=== PATIENT | male | born 1995 | race Caucasian/White ===

== ENCOUNTER 2021-10-11 16:10 | Emergency (ER) | payer BC, SELFPAY ==
[2021-10-11 16:19] VITALS: BP 147/95; PULSE 105; RESP 18; TEMP 37.3; O2SAT 99
--- NOTE | 2021-10-11 16:58 | ED.URI ---
HPI - URI/Sore Throat General Chief Complaint: Upper Respiratory Infection Stated Complaint: sore throat, clogged left ear History of Present Illness HPI Narrative: 26 year old male accompanied by father who presents to express care with complaints of one week duration of sore throat raspy voice, sinus congestion with drainage, and left ear feels clogged, Father states that his is [employer] and she brought home strep test which they performed at home which was negative. Patient reports that he has not had any fever, chills, or sweats, or body aches, patient reports that he has had COVID and Flu vaccinations.He reports that he has had a dry cough denies any feelings of being short of breath. MD elicited complaint: sore throat, rhinorrhea, nasal congestion and other (ear) Related Data Home Medications Medication Instructions Recorded Confirmed Seroquel 10/11/21 trazodone 100 mg tablet tablet 10/11/21 Allergies Allergy/AdvReac Type Severity Reaction Status Date / Time Penicillins Allergy Mild Unverified 08/02/08 14:03 NKDA Allergy Mild Uncoded 09/12/08 11:26 Review of Systems Review of Systems: CONSTITUTIONAL: Denies fever, chills, or sweats. EYES: Denies visual changes, redness, or discharge. ENT: positive for rhinorrhea, congestion, sore throat, left otalgia and muffled hearing CARDIOVASCULAR: Denies chest pain, palpitations, or edema. RESPIRATORY: Positive for cough no dyspnea. GASTROINTESTINAL: Denies abdominal pain, nausea, vomiting, or diarrhea. GENITOURINARY: Denies dysuria or hematuria. SKIN: Denies rash or itching. MUSCULOSKELETAL: Denies back pain, joint pain, or myalgia. NEUROLOGIC: Denies headache, numbness, or weakness. PSYCHIATRIC:positive for history of anxiety or depression. [facility] Past Medical History Medical History (Updated 10/12/21 @ 13:03 by Nesha Maharaj NP) Anxiety and depression Surgical History Surgical History (Updated 10/12/21 @ 13:00 by Nesha Maharaj NP) No history of previous surgery Social History Social History (Updated 10/12/21 @ 12:56 by Nesha Maharaj NP) Smoking status: Never smoker Alcohol intake: never Substance use: never Living arrangements: with family Gender identity (if verbalized by the patient): Male Comments at time of signature agree with nursing documentation of past medical surgical, social and family history. There is no relevant family history pertinent to presenting complaint. Exam Narrative: GENERAL: Well-appearing, well-nourished, obese,and in no acute distress.scharge oted HEAD: Normocephalic, atraumatic. EYES: PERRLA and EOMI. ENT: Nares red with clear rhinorrhea no epistaxis. Mucous membranes moist.Right TM normal with good light reflex, Left TM red and bulging no drainage in canal, throat red with no lesions or exudates or tonsil swelling, post nasal discharge noted. NECK: Supple.no lymphadenopathy CHEST: Clear to auscultation. No respiratory distress,dry cough noted, SAO2 99% on room air HEART: Regular rate and rhythm. No murmur heard. Normal peripheral pulses. ABDOMEN: Soft, nontender, nondistended, normal active bowel sounds. EXTREMITIES: Normal range of motion. No edema. SKIN: Warm, dry, no rash. NEURO: No focal deficits. Alert and oriented x3. Course Course Level of Care: Express Care Visit Vital Signs Vital signs: Vital Signs Temperature 37.3 C 10/11/21 16:19 Pulse Rate 105 H 10/11/21 16:19 Respiratory Rate 18 10/11/21 16:19 Blood Pressure 147/95 H 10/11/21 16:19 Pulse Oximetry 99 10/11/21 16:19 Temperature 37.3 C 10/11/21 16:19 Pulse Rate 105 H 10/11/21 16:19 Respiratory Rate 18 10/11/21 16:19 Blood Pressure 147/95 H 10/11/21 16:19 Pulse Oximetry 99 10/11/21 16:19 MDM - URI/Sore Throat Differential Diagnosis Differential diagnosis: Likely upper respiratory infection, otitis media, sinusitis and pharyngitis Medical Records Attestation: I reviewed the patient's medic
== END 2021-10-11 17:15 | disposition home or self-care (01) ==
PROVIDERS: Emergency Provider Registered Nurse; PCP Internal Medicine
DX: J06.9 Acute upper respiratory infection, unspecified (principal); H66.92 Otitis media, unspecified, left ear
CPT/HCPCS: 99213; G0463

== ENCOUNTER 2023-03-18 17:20 | Emergency (ER) | payer BC, SELFPAY ==
[2023-03-18 17:29] VITALS: BP 141/90; PULSE 101; RESP 16; TEMP 36.9; O2SAT 97
--- NOTE | 2023-03-18 18:08 | ED.SKABFB ---
HPI - Skin/Abscess/Foreign Bdy General Chief complaint: Skin/Abscess/Foreign Body Stated complaint: RASH Time Seen by Provider: 03/18/23 17:58 Source: patient, family (Mother) and RN notes reviewed Mode of arrival: ambulatory Limitations: no limitations History of Present Illness HPI narrative: Patient presents today complaining heart rash widespread over his abdomen, bilateral antecubital fossa, and posterior neck. Symptoms have been present for 1 week. Denies itching or pain. He has tried no [id number] interventions prior to arrival. Related Data Home Medications Medication Instructions Recorded Confirmed trazodone 100 mg tablet 100 mg PO DAILY 10/11/21 03/18/23 fluoxetine 10 mg capsule 10 mg PO DAILY 03/18/23 03/18/23 Allergies Allergy/AdvReac Type Severity Reaction Status Date / Time NKDA Allergy Mild Other Uncoded 03/18/23 17:39 Review of Systems Review of Systems: CONSTITUTIONAL: Denies body aches, fever, chills, or sweats. EYES: Denies visual changes, redness, or discharge. ENT: Denies rhinorrhea, congestion, sore throat, or otalgia. CARDIOVASCULAR: Denies chest pain, palpitations, or edema. RESPIRATORY: Denies cough or dyspnea. GASTROINTESTINAL: Denies abdominal pain, nausea, vomiting, or diarrhea. GENITOURINARY: Denies dysuria or hematuria. SKIN: + rash. MUSCULOSKELETAL: Denies back pain, joint pain, or myalgia. NEUROLOGIC: Denies headache, numbness, tingling, or weakness. PSYCH: Denies depression or anxiety. [facility] Past Medical History Medical History Anxiety and depression Surgical History Surgical History No history of previous surgery Social History Social History Smoking status: Never smoker Alcohol intake: never Substance use: never Living arrangements: with family Gender identity (if verbalized by the patient): Male Comments At time of signature, I have reviewed and agree with nursing past medical, surgical, social and family history unless otherwise noted. Please see nursing chart for further information. There is no relevant family history pertinent to the presenting complaint Exam Narrative: GENERAL: Well-appearing, well-nourished, and in no acute distress. HEAD: Normocephalic, atraumatic. EYES: EOMI. No redness or drainage. Conjunctivae normal. ENT: Mucous membranes pink and moist. Nares clear. No rhinorrhea. TMs normal bilaterally. Throat normal. Uvula midline. NECK: Normal AROM. Supple. No lymphadenopathy. CHEST: No respiratory distress. Clear to auscultation. HEART: Regular rate and rhythm. No murmur appreciated. Normal peripheral pulses. ABDOMEN: Soft, nontender, nondistended, normal active bowel sounds. MUSCULOSKELETAL: No bony tenderness. EXTREMITIES: Normal range of motion. No edema. SKIN: Warm, dry. Capillary refill normal. Normal skin turgor. Widespread erythematous coalesced maculopapular rash that is primarily in the skin folds of the abdomen, chest, bilateral antecubital fossa, and posterior neck. Rash is dry and scaly and areas, consistent with fungal rash. NEURO: No focal deficits. Alert and oriented x3. Gait steady. PSYCH: Normal affect. No signs of depression or anxiety. Course Course Level of Care: Express Care Visit Vital Signs Vital signs: Vital Signs Temperature 98.5 F 03/18/23 17:29 Pulse Rate 101 H 03/18/23 17:29 Respiratory Rate 16 03/18/23 17:29 Blood Pressure 141/90 H 03/18/23 17:29 Pulse Oximetry 97 03/18/23 17:29 Temperature 98.5 F 03/18/23 17:29 Pulse Rate 101 H 03/18/23 17:29 Respiratory Rate 16 03/18/23 17:29 Blood Pressure 141/90 H 03/18/23 17:29 Pulse Oximetry 97 03/18/23 17:29 Oxygen Delivery Room Air 03/18/23 17:36 Reviewed MDM - Skin/Abscess/Foreign Bdy MDM Narrative Medical
== END 2023-03-18 18:18 | disposition home or self-care (01) ==
PROVIDERS: Emergency Provider Nurse Practitioner
DX: B36.9 Superficial mycosis, unspecified (principal); F41.9 Anxiety disorder, unspecified; F32.A Depression, unspecified
CPT/HCPCS: 99211; G0463